=== PATIENT | female | born 1980 | race Caucasian/White ===

== ENCOUNTER 2021-07-07 22:14 | Inpatient (IN) ==
[2021-07-07] MEDS ORDERED: SODIUM CHLORIDE 0.9% 1,000 ML IV STA (23:03)
[2021-07-07 23:44] LABS: Basophils % 0.2 % (0.0-0.8); Eosinophils % 0.1 % (0.00-10.9); Hematocrit 39.8 VOL% (35.7-47.0); Hemoglobin 12.7 GM/DL (12.0-16.0); Immature Granulocytes % 0.6 %; Lymphocytes # 0.6 10*3/uL (1.4-4.0); Lymphocytes % 3.3 % (21.3-54.2); Mean Corpuscular HGB Conc 31.9 GM/DL (32-36); Mean Corpuscular Volume 79.6 FL (87-102); Monocytes % 12.7 % (1.7-12.7); Neutrophils % 83.1 % (38.7-73.9); Platelet Count 179 T/CUMM (130-400); Red Cell Distribution Width 13.6 % (9.3-17.3)
[2021-07-08 00:09] LABS: Alanine Aminotransferase 21 U/L (13-56); Albumin 2.1 G/DL (3.4-5.0); Alkaline Phosphatase 88 U/L (45-117); Aspartate Amino Transferase 18 U/L (0-37); Blood Urea Nitrogen 20 MG/DL (7-18); Calcium 8.9 MG/DL (8.5-10.1); Carbon Dioxide 24 MMOL/L (21-32); Estimated Glom Filtration Rate 73 ML/MIN; Glucose 372 MG/DL (74-106); Osmolality,Calculated 266.6 MOS/KG (273-304); Potassium 3.9 MMOL/L (3.5-5.1); Sodium 124 MMOL/L (136-145); Total Protein 8.5 G/DL (6.4-8.2)
[2021-07-08 00:20] LABS: Lactic Acid 3.4 MMOL/L (0.4-2.0)
[2021-07-08 00:49] LABS: Sedimentation Rate-Westergren 9 MM/HR (0-20)
[2021-07-08 01:00] LABS: Lymphocytes 5 % (20-55); Platelet Estimate Normal; Segmented Neutrophils 81 % (50-85); Total Cells Counted 100
[2021-07-08 01:01] LABS: Hypochromia Slight; Microcytosis 1+; Polychromasia Slight
[2021-07-08 02:00] LABS: Bacteria,Urine Occasional /HPF (Few); Bilirubin,Urine Negative (Negative); Blood, Urine Small mg/dL (Negative); Glucose,Urine (UA) >=500 mg/dL (Negative); Hyaline Casts,Urine 10 /LPF (0-3); Ketones,Urine 5 mg/dL (Negative); Mucus,Urine Few /LPF (Occasional); Nitrite,Urine Negative (Negative); Protein,Urine >=500 MG/DL; Squamous Epithelial Cell,Urine Occasional /HPF (0-10); Urine Appearance CLOUDY (Clear); Urine Color Amber (Yellow)
[2021-07-08 02:58] LABS: Barbiturates Screen,Urine Negative (Negative); Benzodiazepines Screen,Urine Negative (Negative); Cannabinoid Screen,Urine Negative (Negative); Opiate Screen,Urine Negative (Negative); Phencyclidine Screen,Urine Negative (Negative)
[2021-07-08] MEDS ORDERED: cefTRIAXone 1,000 MG in SODIUM CHLORIDE 0.9% 100 ML IV STA (04:28)
[2021-07-08] MEDS ORDERED: GLUCAGON 1 MG VIAL IM PRN ×2 (05:09)
[2021-07-08] MEDS ORDERED: DEXTROSE 50% 25 GM/50 ML VIAL IV PRN (05:09)
[2021-07-08] MEDS ORDERED: DEXTROSE 50% 25 GM/50 ML SYRINGE IV PRN (05:19)
[2021-07-08] MEDS ORDERED: AZITHROMYCIN INJ 500 MG in SODIUM CHLORIDE 0.9% 250 ML IV SCH (06:00)
[2021-07-08] MEDS: ENOXAPARIN 40 MG/0.4 ML SYRINGE SUBCUT SCH (06:28)
[2021-07-08 06:40] LABS: Basophils % 0.2 % (0.0-0.8); Hematocrit 37.3 VOL% (35.7-47.0); Hemoglobin 12.2 GM/DL (12.0-16.0); Immature Granulocytes % 0.7 %; Lymphocytes # 0.6 10*3/uL (1.4-4.0); Lymphocytes % 4.1 % (21.3-54.2); Mean Corpuscular HGB Conc 32.7 GM/DL (32-36); Mean Corpuscular Volume 79.4 FL (87-102); Mean Platelet Volume 12.5 FL (9.6-12.0); Monocytes % 11.9 % (1.7-12.7); Neutrophils % 83.1 % (38.7-73.9); Platelet Count 153 T/CUMM (130-400); Red Cell Distribution Width 13.5 % (9.3-17.3)
[2021-07-08 06:58] LABS: Albumin 1.8 G/DL (3.4-5.0); Bilirubin,Total 2.7 MG/DL (0.20-1.00); Calcium 8.9 MG/DL (8.5-10.1); Osmolality,Calculated 268.4 MOS/KG (273-304); Potassium 3.9 MMOL/L (3.5-5.1)
[2021-07-08 07:12] LABS: Band Neutrophils 36 % (0-10); Lymphocytes 4 % (20-55); Metamyelocytes 3 %; Platelet Estimate Normal; Segmented Neutrophils 47 % (50-85); Total Cells Counted 100
[2021-07-08 07:13] LABS: Anisocytosis Slight; Burr Cells Few
[2021-07-08] MEDS: SODIUM CHLORIDE 0.9% 1,000 ML IV SCH ×2 (07:24→16:57)
[2021-07-08] MEDS ORDERED: PANTOPRAZOLE 40 MG TABLET PO SCH (09:00)
[2021-07-08] MEDS ORDERED: SODIUM CHLORIDE 0.9% 1,000 ML IV ONE ×2 (09:20→13:48)
[2021-07-08] MEDS ORDERED: INFLUENZA VIRUS VACCINE 0.5 ML SYRINGE IM ONE (09:31)
[2021-07-08] MEDS: INSULIN REGULAR 100 UNIT/ML SUBCUT SCH ×4 (10:46→21:59)
[2021-07-08] MEDS ORDERED: DEXTROSE 10% 250 ML BAG IV PRN (11:05)
[2021-07-08] MEDS: VANCOMYCIN INJ 1,750 MG in SODIUM CHLORIDE 0.9% 500 ML IV SCH (11:56)
[2021-07-08] MEDS: FLUCONAZOLE INJ 200 MG/100 ML PREMIX IV SCH (14:39)
[2021-07-08] MEDS: ACETAMINOPHEN 325 MG TABLET PO PRN (16:57)
[2021-07-09] MEDS: ACETAMINOPHEN 325 MG TABLET PO PRN (01:29)
[2021-07-09] MEDS: VANCOMYCIN INJ 1,750 MG in SODIUM CHLORIDE 0.9% 500 ML IV SCH ×2 (01:30→12:38)
[2021-07-09] MEDS: SODIUM CHLORIDE 0.9% 1,000 ML IV SCH ×4 (01:31→20:46)
[2021-07-09] MEDS ORDERED: cefTRIAXone 1,000 MG in SODIUM CHLORIDE 0.9% 100 ML IV SCH ×2 (05:30→06:30)
[2021-07-09] MEDS: ENOXAPARIN 40 MG/0.4 ML SYRINGE SUBCUT SCH (06:26)
[2021-07-09] MEDS ORDERED: cefTRIAXone 2,000 MG in SODIUM CHLORIDE 0.9% 100 ML IV SCH (06:30)
[2021-07-09] MEDS ORDERED: fentaNYL 100 MCG/2 ML VIAL ONE (06:44)
[2021-07-09] MEDS ORDERED: LIDOCAINE 2% 5 ML VIAL ONE (06:45)
[2021-07-09] MEDS ORDERED: propofoL 200 MG/20 ML VIAL IV ONE (06:45)
[2021-07-09 07:20] LABS: Basophils % 0.1 % (0.0-0.8); Hemoglobin 10.6 GM/DL (12.0-16.0); Immature Granulocytes % 1.3 %; Immature Granulocytes Absolute 0.18 #; Lymphocytes # 0.5 10*3/uL (1.4-4.0); Lymphocytes % 3.9 % (21.3-54.2); Mean Corpuscular HGB Conc 32.1 GM/DL (32-36); Mean Corpuscular Volume 79.9 FL (87-102); Mean Platelet Volume 12.5 FL (9.6-12.0); Monocytes % 14.8 % (1.7-12.7); Neutrophils % 79.9 % (38.7-73.9); Platelet Count 172 T/CUMM (130-400); Red Blood Count 4.13 MC/CUMM (3.8-5.5); Red Cell Distribution Width 13.5 % (9.3-17.3); White Blood Count 13.5 T/CUMM (4-12)
[2021-07-09] MEDS: INSULIN REGULAR 100 UNIT/ML SUBCUT SCH ×4 (07:36→20:50)
[2021-07-09] MEDS ORDERED: SUCCINYLCHOLINE 200 MG/10 ML VIAL ONE (07:42)
[2021-07-09] MEDS ORDERED: ONDANSETRON 4 MG/2 ML VIAL ONE (07:42)
[2021-07-09] MEDS ORDERED: DEXAMETHASONE 4 MG/1 ML VIAL ONE (07:45)
[2021-07-09] MEDS ORDERED: SODIUM CHLORIDE 0.9% 1,000 ML IV ONE (07:49)
[2021-07-09 07:53] LABS: Calcium 8.4 MG/DL (8.5-10.1); Osmolality,Calculated 264.9 MOS/KG (273-304); Potassium 3.2 MMOL/L (3.5-5.1)
[2021-07-09] MEDS ORDERED: SEVOFLURANE 1 UNIT/15 MINUTE INH ONE (07:54)
[2021-07-09 08:03] LABS: Band Neutrophils 41 % (0-10); Eosinophils 1 % (0-10); Lymphocytes 3 % (20-55); Platelet Estimate Normal; Segmented Neutrophils 41 % (50-85); Total Cells Counted 100
[2021-07-09 08:04] LABS: Anisocytosis Slight
[2021-07-09] MEDS ORDERED: ONDANSETRON 4 MG/2 ML VIAL IV PRN (08:22)
[2021-07-09] MEDS: HYDROmorphone 2 MG/1 ML VIAL IV PRN ×2 (08:31→08:39)
[2021-07-09] MEDS: FLUCONAZOLE INJ 200 MG/100 ML PREMIX IV SCH (09:21)
[2021-07-09] MEDS ORDERED: POTASSIUM CHLORIDE 20 MEQ TABLET PO PRN (12:02)
[2021-07-09] MEDS ORDERED: MAGNESIUM SULF RIDER 4 GM/100 ML PREMIX IV PRN (12:02)
[2021-07-09] MEDS ORDERED: MAGNESIUM SULF RIDER 2 GM/50 ML PREMIX IV PRN (12:02)
[2021-07-09] MEDS ORDERED: HYDROmorphone 2 MG/1 ML VIAL IV PRN (12:05)
[2021-07-09 12:29] LABS: Basophils # 0.1 10*3/uL (0.0-0.2); Basophils % 0.3 % (0.0-0.8); Hematocrit 31.8 VOL% (35.7-47.0); Hemoglobin 10.1 GM/DL (12.0-16.0); Immature Granulocytes % 1.4 %; Lymphocytes # 0.4 10*3/uL (1.4-4.0); Lymphocytes % 2.6 % (21.3-54.2); Mean Corpuscular HGB Conc 31.8 GM/DL (32-36); Mean Corpuscular Volume 80.3 FL (87-102); Monocytes % 12.4 % (1.7-12.7); Neutrophils % 83.3 % (38.7-73.9); Platelet Count 175 T/CUMM (130-400); Red Blood Count 3.96 MC/CUMM (3.8-5.5); Red Cell Distribution Width 13.6 % (9.3-17.3); White Blood Count 14.4 T/CUMM (4-12)
[2021-07-09 12:49] LABS: Band Neutrophils 23 % (0-10); Lymphocytes 3 % (20-55); Metamyelocytes 3 %; Platelet Estimate Normal; Segmented Neutrophils 59 % (50-85); Total Cells Counted 100
[2021-07-09 12:50] LABS: Anisocytosis Slight
[2021-07-09] MEDS: INSULIN GLARGINE 100 UNIT/ML SUBCUT SCH (13:04)
[2021-07-09] MEDS: CLINDAMYCIN INJ 600 MG/50 ML PREMIX IV SCH ×2 (13:17→20:39)
[2021-07-09] MEDS: PIPERACILLIN/TAZOBACTAM 3,375 MG in SODIUM CHLORIDE 0.9% 100 ML IV SCH ×2 (16:19→23:14)
[2021-07-10] MEDS: VANCOMYCIN INJ 1,750 MG in SODIUM CHLORIDE 0.9% 500 ML IV SCH ×2 (00:45→15:41)
[2021-07-10 05:40] LABS: Basophils % 0.3 % (0.0-0.8); Hematocrit 30.8 VOL% (35.7-47.0); Hemoglobin 9.8 GM/DL (12.0-16.0); Immature Granulocytes % 2.5 %; Immature Granulocytes Absolute 0.34 #; Lymphocytes # 0.6 10*3/uL (1.4-4.0); Lymphocytes % 4.5 % (21.3-54.2); Mean Corpuscular HGB Conc 31.8 GM/DL (32-36); Mean Corpuscular Volume 80.8 FL (87-102); Mean Platelet Volume 12.3 FL (9.6-12.0); Monocytes % 14.6 % (1.7-12.7); Neutrophils % 78.1 % (38.7-73.9); Platelet Count 200 T/CUMM (130-400); Red Blood Count 3.81 MC/CUMM (3.8-5.5); Red Cell Distribution Width 13.6 % (9.3-17.3); White Blood Count 13.6 T/CUMM (4-12)
[2021-07-10] MEDS: CLINDAMYCIN INJ 600 MG/50 ML PREMIX IV SCH ×3 (05:45→22:39)
[2021-07-10] MEDS: ENOXAPARIN 40 MG/0.4 ML SYRINGE SUBCUT SCH (05:46)
[2021-07-10] MEDS: PIPERACILLIN/TAZOBACTAM 3,375 MG in SODIUM CHLORIDE 0.9% 100 ML IV SCH ×2 (05:46→18:07)
[2021-07-10] MEDS: SODIUM CHLORIDE 0.9% 1,000 ML IV SCH ×3 (05:47→22:45)
[2021-07-10 05:57] LABS: Albumin 1.2 G/DL (3.4-5.0); Bilirubin,Total 1.6 MG/DL (0.20-1.00); Calcium 7.8 MG/DL (8.5-10.1); Osmolality,Calculated 271.7 MOS/KG (273-304); Potassium 3.4 MMOL/L (3.5-5.1); Total Protein 6.4 G/DL (6.4-8.2)
[2021-07-10 06:12] LABS: Hypochromia 1+; Lymphocytes 2 % (20-55); Microcytosis 1+; Platelet Estimate Adequate; Segmented Neutrophils 85 % (50-85); Total Cells Counted 100
[2021-07-10] MEDS ORDERED: FAMOTIDINE 20 MG/2 ML VIAL IV ONE (08:31)
[2021-07-10] MEDS: INSULIN GLARGINE 100 UNIT/ML SUBCUT SCH (10:12)
[2021-07-10] MEDS: INSULIN REGULAR 100 UNIT/ML SUBCUT SCH ×4 (10:12→22:55)
[2021-07-10] MEDS: FLUCONAZOLE INJ 400 MG/200 ML PREMIX IV SCH (10:13)
[2021-07-10] MEDS ORDERED: fentaNYL 100 MCG/2 ML VIAL ONE ×2 (12:09→12:49)
[2021-07-10] MEDS ORDERED: propofoL 200 MG/20 ML VIAL IV ONE (12:09)
[2021-07-10] MEDS ORDERED: ONDANSETRON 4 MG/2 ML VIAL ONE (12:09)
[2021-07-10] MEDS ORDERED: SUCCINYLCHOLINE 200 MG/10 ML VIAL ONE (12:09)
[2021-07-10] MEDS ORDERED: DEXAMETHASONE 4 MG/1 ML VIAL ONE ×2 (12:09→12:43)
[2021-07-10] MEDS ORDERED: LIDOCAINE 2% 5 ML VIAL ONE (12:09)
[2021-07-10] MEDS ORDERED: ACETAMINOPHEN INJ 1,000 MG/100 ML VIAL IV ONE (12:14)
[2021-07-10] MEDS ORDERED: KETOROLAC 30 MG/1 ML VIAL ONE (12:14)
[2021-07-10] MEDS ORDERED: LACTATED RINGERS 1,000 ML IV SCH (12:30)
[2021-07-10] MEDS ORDERED: SEVOFLURANE 1 UNIT/15 MINUTE INH ONE ×2 (12:43→13:35)
[2021-07-11] MEDS: PIPERACILLIN/TAZOBACTAM 3,375 MG in SODIUM CHLORIDE 0.9% 100 ML IV SCH ×3 (00:51→18:22)
[2021-07-11] MEDS: VANCOMYCIN INJ 1,750 MG in SODIUM CHLORIDE 0.9% 500 ML IV SCH ×2 (03:55→17:44)
[2021-07-11 05:54] LABS: Basophils % 0.2 % (0.0-0.8); Hematocrit 29.5 VOL% (35.7-47.0); Hemoglobin 9.2 GM/DL (12.0-16.0); Immature Granulocytes % 5.2 %; Immature Granulocytes Absolute 0.94 #; Lymphocytes # 0.6 10*3/uL (1.4-4.0); Lymphocytes % 3.4 % (21.3-54.2); Mean Corpuscular HGB Conc 31.2 GM/DL (32-36); Mean Corpuscular Volume 82.6 FL (87-102); Mean Platelet Volume 11.7 FL (9.6-12.0); Neutrophils % 82.2 % (38.7-73.9); Platelet Count 228 T/CUMM (130-400); Red Blood Count 3.57 MC/CUMM (3.8-5.5); Red Cell Distribution Width 13.7 % (9.3-17.3); White Blood Count 18.1 T/CUMM (4-12)
[2021-07-11 06:18] LABS: Band Neutrophils 3 % (0-10); Hypochromia 1+; Lymphocytes 1 % (20-55); Microcytosis 1+; Platelet Estimate Adequate; Segmented Neutrophils 88 % (50-85); Total Cells Counted 100
[2021-07-11 06:35] LABS: Albumin 1.1 G/DL (3.4-5.0); Bilirubin,Total 1.3 MG/DL (0.20-1.00); Calcium 8.2 MG/DL (8.5-10.1); Osmolality,Calculated 280.7 MOS/KG (273-304); Potassium 3.8 MMOL/L (3.5-5.1); Total Protein 6.4 G/DL (6.4-8.2)
[2021-07-11] MEDS: CLINDAMYCIN INJ 600 MG/50 ML PREMIX IV SCH ×3 (07:11→21:58)
[2021-07-11] MEDS ORDERED: ROCURONIUM 50 MG/5 ML VIAL IV ONE (07:22)
[2021-07-11] MEDS ORDERED: fentaNYL 100 MCG/2 ML VIAL ONE ×2 (07:22→08:31)
[2021-07-11] MEDS ORDERED: SUCCINYLCHOLINE 200 MG/10 ML VIAL ONE (07:22)
[2021-07-11] MEDS ORDERED: ONDANSETRON 4 MG/2 ML VIAL ONE (07:22)
[2021-07-11] MEDS ORDERED: LIDOCAINE 2% 5 ML VIAL ONE (07:22)
[2021-07-11] MEDS ORDERED: SEVOFLURANE 1 UNIT/15 MINUTE INH ONE ×3 (07:22→09:06)
[2021-07-11] MEDS ORDERED: MIDAZOLAM 2 MG/2 ML VIAL ONE (07:22)
[2021-07-11] MEDS ORDERED: propofoL 200 MG/20 ML VIAL IV ONE (07:22)
[2021-07-11] MEDS ORDERED: LACTATED RINGERS 1,000 ML IV SCH (08:00)
[2021-07-11] MEDS ORDERED: INSULIN GLARGINE 100 UNIT/ML SUBCUT SCH (09:00)
[2021-07-11] MEDS ORDERED: LACTATED RINGERS 1,000 ML IV ONE (09:05)
[2021-07-11] MEDS ORDERED: PROMETHAZINE INJ 25 MG in SODIUM CHLORIDE 0.9% 50 ML IV PRN (09:18)
[2021-07-11] MEDS ORDERED: HYDROmorphone 2 MG/1 ML VIAL IV PRN (09:18)
[2021-07-11] MEDS ORDERED: ONDANSETRON 4 MG/2 ML VIAL IV PRN (09:18)
[2021-07-11] MEDS ORDERED: MEPERIDINE 25 MG/1 ML VIAL IV PRN (09:18)
[2021-07-11] MEDS ORDERED: diphenhydrAMINE 50 MG/1 ML VIAL IV PRN (09:18)
[2021-07-11] MEDS: FLUCONAZOLE INJ 400 MG/200 ML PREMIX IV SCH (10:51)
[2021-07-11] MEDS: INSULIN REGULAR 100 UNIT/ML SUBCUT SCH ×4 (10:52→21:58)
[2021-07-11] MEDS ORDERED: INSULIN GLARGINE 100 UNIT/ML SUBCUT ONE (15:00)
[2021-07-11] MEDS: SODIUM CHLORIDE 0.9% 1,000 ML IV SCH ×2 (16:11→19:53)
[2021-07-12] MEDS: SODIUM CHLORIDE 0.9% 1,000 ML IV SCH ×4 (01:31→21:53)
[2021-07-12] MEDS: PIPERACILLIN/TAZOBACTAM 3,375 MG in SODIUM CHLORIDE 0.9% 100 ML IV SCH ×3 (01:32→16:28)
[2021-07-12 05:18] LABS: Basophils # 0.1 10*3/uL (0.0-0.2); Basophils % 0.4 % (0.0-0.8); Eosinophils % 0.2 % (0.00-10.9); Hematocrit 30.2 VOL% (35.7-47.0); Hemoglobin 9.3 GM/DL (12.0-16.0); Immature Granulocytes % 8.6 %; Immature Granulocytes Absolute 1.47 #; Lymphocytes # 1.1 10*3/uL (1.4-4.0); Lymphocytes % 6.3 % (21.3-54.2); Mean Corpuscular HGB Conc 30.8 GM/DL (32-36); Mean Corpuscular Volume 84.1 FL (87-102); Mean Platelet Volume 11.2 FL (9.6-12.0); Neutrophils % 76.5 % (38.7-73.9); Platelet Count 298 T/CUMM (130-400); Red Blood Count 3.59 MC/CUMM (3.8-5.5); Red Cell Distribution Width 13.9 % (9.3-17.3); White Blood Count 17.1 T/CUMM (4-12)
[2021-07-12 05:42] LABS: Band Neutrophils 2 % (0-10); Eosinophils 1 % (0-10); Lymphocytes 6 % (20-55); Platelet Estimate Adequate; Segmented Neutrophils 86 % (50-85); Total Cells Counted 100
[2021-07-12 05:43] LABS: Hypochromia Slight; Microcytosis Slight
[2021-07-12] MEDS: CLINDAMYCIN INJ 600 MG/50 ML PREMIX IV SCH ×3 (05:44→21:52)
[2021-07-12 05:47] LABS: Calcium 8.3 MG/DL (8.5-10.1); Osmolality,Calculated 284.1 MOS/KG (273-304); Potassium 3.4 MMOL/L (3.5-5.1)
[2021-07-12] MEDS ORDERED: POTASSIUM CHLORIDE 20 MEQ TABLET PO ONE (07:40)
[2021-07-12] MEDS ORDERED: MIDAZOLAM 2 MG/2 ML VIAL ONE (08:56)
[2021-07-12] MEDS ORDERED: ONDANSETRON 4 MG/2 ML VIAL ONE (08:56)
[2021-07-12] MEDS ORDERED: ROCURONIUM 50 MG/5 ML VIAL IV ONE (08:56)
[2021-07-12] MEDS ORDERED: propofoL 200 MG/20 ML VIAL IV ONE (08:56)
[2021-07-12] MEDS ORDERED: LIDOCAINE 2% 5 ML VIAL ONE (08:56)
[2021-07-12] MEDS ORDERED: fentaNYL 100 MCG/2 ML VIAL ONE (08:56)
[2021-07-12] MEDS ORDERED: LACTATED RINGERS 1,000 ML IV SCH (09:30)
[2021-07-12] MEDS ORDERED: SUCCINYLCHOLINE 200 MG/10 ML VIAL ONE (09:39)
[2021-07-12] MEDS ORDERED: SEVOFLURANE 1 UNIT/15 MINUTE INH ONE (10:16)
[2021-07-12] MEDS ORDERED: ONDANSETRON 4 MG/2 ML VIAL IV PRN (10:55)
[2021-07-12] MEDS ORDERED: HYDROmorphone 2 MG/1 ML VIAL IV PRN (10:55)
[2021-07-12] MEDS: INSULIN REGULAR 100 UNIT/ML SUBCUT SCH ×4 (12:47→21:53)
[2021-07-12] MEDS: ENOXAPARIN 40 MG/0.4 ML SYRINGE SUBCUT SCH ×2 (13:05→13:32)
[2021-07-12] MEDS: INSULIN GLARGINE 100 UNIT/ML SUBCUT SCH (13:06)
[2021-07-12] MEDS: FLUCONAZOLE INJ 400 MG/200 ML PREMIX IV SCH (13:30)
[2021-07-12] MEDS: FLUCONAZOLE 200 MG TABLET PO SCH (14:44)
[2021-07-12] MEDS ORDERED: GLUCAGON 1 MG VIAL IM PRN (15:55)
[2021-07-12] MEDS ORDERED: DEXTROSE 50% 25 GM/50 ML VIAL IV PRN (15:55)
[2021-07-13] MEDS: PIPERACILLIN/TAZOBACTAM 3,375 MG in SODIUM CHLORIDE 0.9% 100 ML IV SCH ×3 (01:54→16:32)
[2021-07-13 06:07] LABS: Basophils # 0.1 10*3/uL (0.0-0.2); Basophils % 0.4 % (0.0-0.8); Eosinophils # 0.1 10*3/uL (0.0-0.87); Eosinophils % 0.4 % (0.00-10.9); Hematocrit 30.8 VOL% (35.7-47.0); Hemoglobin 9.7 GM/DL (12.0-16.0); Immature Granulocytes % 8.6 %; Immature Granulocytes Absolute 1.94 #; Lymphocytes # 1.2 10*3/uL (1.4-4.0); Lymphocytes % 5.1 % (21.3-54.2); Mean Corpuscular HGB Conc 31.5 GM/DL (32-36); Mean Corpuscular Volume 82.4 FL (87-102); Mean Platelet Volume 10.5 FL (9.6-12.0); Monocytes % 5.7 % (1.7-12.7); Neutrophils % 79.8 % (38.7-73.9); Platelet Count 336 T/CUMM (130-400); Red Blood Count 3.74 MC/CUMM (3.8-5.5); Red Cell Distribution Width 13.9 % (9.3-17.3); White Blood Count 22.5 T/CUMM (4-12)
[2021-07-13] MEDS: CLINDAMYCIN INJ 600 MG/50 ML PREMIX IV SCH ×3 (06:22→22:09)
[2021-07-13 06:36] LABS: Osmolality,Calculated 276.8 MOS/KG (273-304); Potassium 3.3 MMOL/L (3.5-5.1)
[2021-07-13 06:40] LABS: Band Neutrophils 3 % (0-10); Hypochromia 1+; Lymphocytes 5 % (20-55); Microcytosis 1+; Platelet Estimate Adequate; Segmented Neutrophils 88 % (50-85); Total Cells Counted 100
[2021-07-13] MEDS: FLUCONAZOLE 200 MG TABLET PO SCH (09:12)
[2021-07-13] MEDS: INSULIN REGULAR 100 UNIT/ML SUBCUT SCH ×4 (09:13→22:09)
[2021-07-13] MEDS: INSULIN GLARGINE 100 UNIT/ML SUBCUT SCH (09:13)
[2021-07-13] MEDS ORDERED: POTASSIUM CHLORIDE 20 MEQ TABLET PO PRN (11:28)
[2021-07-13] MEDS: SODIUM CHLORIDE 0.9% 1,000 ML IV SCH ×4 (12:03→22:09)
[2021-07-14] MEDS: PIPERACILLIN/TAZOBACTAM 3,375 MG in SODIUM CHLORIDE 0.9% 100 ML IV SCH ×3 (00:50→21:23)
[2021-07-14] MEDS: SODIUM CHLORIDE 0.9% 1,000 ML IV SCH ×2 (05:30→15:07)
[2021-07-14] MEDS: CLINDAMYCIN INJ 600 MG/50 ML PREMIX IV SCH ×2 (05:34→12:10)
[2021-07-14 05:53] LABS: Basophils # 0.1 10*3/uL (0.0-0.2); Basophils % 0.3 % (0.0-0.8); Eosinophils # 0.2 10*3/uL (0.0-0.87); Eosinophils % 0.8 % (0.00-10.9); Hemoglobin 8.5 GM/DL (12.0-16.0); Immature Granulocytes % 9.3 %; Immature Granulocytes Absolute 1.81 #; Lymphocytes # 1.3 10*3/uL (1.4-4.0); Lymphocytes % 6.5 % (21.3-54.2); Mean Corpuscular HGB Conc 30.4 GM/DL (32-36); Mean Corpuscular Volume 84.1 FL (87-102); Mean Platelet Volume 10.4 FL (9.6-12.0); Monocytes % 5.7 % (1.7-12.7); NRBC # 0.03 10*3/uL; Neutrophils % 77.4 % (38.7-73.9); Platelet Count 320 T/CUMM (130-400); Red Blood Count 3.33 MC/CUMM (3.8-5.5); Red Cell Distribution Width 14.1 % (9.3-17.3); White Blood Count 19.5 T/CUMM (4-12)
[2021-07-14 06:12] LABS: % Iron Saturation 16.5 % (18-50); Osmolality,Calculated 273.7 MOS/KG (273-304); Potassium 3.3 MMOL/L (3.5-5.1)
[2021-07-14 06:31] LABS: Band Neutrophils 6 % (0-10); Eosinophils 1 % (0-10); Hypochromia 1+; Lymphocytes 8 % (20-55); Microcytosis 1+; Myelocytes 3 %; Platelet Estimate Adequate; Segmented Neutrophils 75 % (50-85); Total Cells Counted 100
[2021-07-14] MEDS ORDERED: propofoL 200 MG/20 ML VIAL IV ONE ×3 (06:43→09:06)
[2021-07-14] MEDS ORDERED: ROCURONIUM 50 MG/5 ML VIAL IV ONE ×2 (06:43→08:06)
[2021-07-14] MEDS ORDERED: fentaNYL 100 MCG/2 ML VIAL ONE ×3 (06:44→09:16)
[2021-07-14] MEDS ORDERED: SUCCINYLCHOLINE 200 MG/10 ML VIAL ONE ×2 (06:44→08:06)
[2021-07-14] MEDS ORDERED: LIDOCAINE 2% 5 ML VIAL ONE ×2 (06:44→08:06)
[2021-07-14] MEDS ORDERED: ONDANSETRON 4 MG/2 ML VIAL ONE ×2 (06:44→09:06)
[2021-07-14] MEDS: INSULIN REGULAR 100 UNIT/ML SUBCUT SCH ×4 (07:30→21:22)
[2021-07-14] MEDS ORDERED: DESFLURANE 1 UNIT/15 MINUTE INH ONE (08:08)
[2021-07-14] MEDS ORDERED: LACTATED RINGERS 1,000 ML IV SCH (09:00)
[2021-07-14] MEDS: INSULIN GLARGINE 100 UNIT/ML SUBCUT SCH (11:51)
[2021-07-14] MEDS: FLUCONAZOLE 200 MG TABLET PO SCH (12:29)
[2021-07-14] MEDS: FERROUS SULFATE 325 MG TABLET PO SCH (21:22)
[2021-07-14] MEDS: DOCUSATE SODIUM 100 MG CAPSULE PO SCH (21:22)
[2021-07-15] MEDS: CLINDAMYCIN INJ 600 MG/50 ML PREMIX IV SCH ×3 (01:54→18:10)
[2021-07-15] MEDS: ENOXAPARIN 40 MG/0.4 ML SYRINGE SUBCUT SCH (04:34)
[2021-07-15] MEDS: PIPERACILLIN/TAZOBACTAM 3,375 MG in SODIUM CHLORIDE 0.9% 100 ML IV SCH ×3 (04:35→21:57)
[2021-07-15 05:39] LABS: Basophils # 0.1 10*3/uL (0.0-0.2); Basophils % 0.3 % (0.0-0.8); Eosinophils # 0.2 10*3/uL (0.0-0.87); Eosinophils % 0.8 % (0.00-10.9); Hematocrit 27.9 VOL% (35.7-47.0); Hemoglobin 8.6 GM/DL (12.0-16.0); Immature Granulocytes % 8.9 %; Immature Granulocytes Absolute 1.57 #; Lymphocytes # 1.1 10*3/uL (1.4-4.0); Lymphocytes % 6.1 % (21.3-54.2); Mean Corpuscular HGB Conc 30.8 GM/DL (32-36); Mean Platelet Volume 9.8 FL (9.6-12.0); Monocytes % 6.9 % (1.7-12.7); NRBC # 0.02 10*3/uL; Platelet Count 353 T/CUMM (130-400); Red Blood Count 3.32 MC/CUMM (3.8-5.5); Red Cell Distribution Width 14.2 % (9.3-17.3); White Blood Count 17.7 T/CUMM (4-12)
[2021-07-15 05:55] LABS: Calcium 7.5 MG/DL (8.5-10.1); Osmolality,Calculated 278.8 MOS/KG (273-304); Potassium 3.4 MMOL/L (3.5-5.1)
[2021-07-15 06:13] LABS: Band Neutrophils 7 % (0-10); Hypochromia Slight; Lymphocytes 3 % (20-55); Microcytosis Slight; Platelet Estimate Normal; Segmented Neutrophils 87 % (50-85); Total Cells Counted 100
[2021-07-15] MEDS: INSULIN GLARGINE 100 UNIT/ML SUBCUT SCH (09:11)
[2021-07-15] MEDS: FERROUS SULFATE 325 MG TABLET PO SCH ×2 (09:11→21:58)
[2021-07-15] MEDS: DOCUSATE SODIUM 100 MG CAPSULE PO SCH ×2 (09:12→21:58)
[2021-07-15] MEDS: INSULIN REGULAR 100 UNIT/ML SUBCUT SCH ×4 (10:26→21:57)
[2021-07-15] MEDS: SODIUM CHLORIDE 0.9% 1,000 ML IV SCH ×2 (12:15→12:55)
[2021-07-16] MEDS: SODIUM CHLORIDE 0.9% 1,000 ML IV SCH ×2 (00:10→22:51)
[2021-07-16] MEDS: CLINDAMYCIN INJ 600 MG/50 ML PREMIX IV SCH ×3 (00:58→16:50)
[2021-07-16] MEDS: PIPERACILLIN/TAZOBACTAM 3,375 MG in SODIUM CHLORIDE 0.9% 100 ML IV SCH ×3 (04:59→22:51)
[2021-07-16] MEDS: ENOXAPARIN 40 MG/0.4 ML SYRINGE SUBCUT SCH (05:33)
[2021-07-16] MEDS: DOCUSATE SODIUM 100 MG CAPSULE PO SCH ×2 (09:32→22:53)
[2021-07-16] MEDS: INSULIN REGULAR 100 UNIT/ML SUBCUT SCH ×4 (09:32→22:53)
[2021-07-16] MEDS: INSULIN GLARGINE 100 UNIT/ML SUBCUT SCH (09:32)
[2021-07-16] MEDS: FERROUS SULFATE 325 MG TABLET PO SCH ×2 (09:32→22:52)
[2021-07-16 09:36] LABS: Basophils % 0.2 % (0.0-0.8); Eosinophils # 0.2 10*3/uL (0.0-0.87); Eosinophils % 1.3 % (0.00-10.9); Hemoglobin 8.6 GM/DL (12.0-16.0); Immature Granulocytes % 7.3 %; Immature Granulocytes Absolute 0.81 #; Lymphocytes # 0.9 10*3/uL (1.4-4.0); Lymphocytes % 7.9 % (21.3-54.2); Mean Corpuscular HGB Conc 30.7 GM/DL (32-36); Mean Corpuscular Volume 84.1 FL (87-102); Mean Platelet Volume 9.7 FL (9.6-12.0); Monocytes % 7.1 % (1.7-12.7); NRBC # 0.02 10*3/uL; Neutrophils % 76.2 % (38.7-73.9); Platelet Count 337 T/CUMM (130-400); Red Blood Count 3.33 MC/CUMM (3.8-5.5); Red Cell Distribution Width 14.1 % (9.3-17.3); White Blood Count 11.1 T/CUMM (4-12)
[2021-07-16 09:58] LABS: Band Neutrophils 8 % (0-10); Hypochromia 1+; Lymphocytes 7 % (20-55); Myelocytes 1 %; Segmented Neutrophils 76 % (50-85); Total Cells Counted 100
[2021-07-16 09:59] LABS: Microcytosis 1+
[2021-07-16 10:01] LABS: Platelet Estimate Normal
[2021-07-16 10:15] LABS: Osmolality,Calculated 278.7 MOS/KG (273-304); Potassium 3.5 MMOL/L (3.5-5.1)
[2021-07-16] MEDS ORDERED: INSULIN GLARGINE 100 UNIT/ML SUBCUT ONE (10:46)
[2021-07-16] MEDS: PANTOPRAZOLE 40 MG TABLET PO SCH (16:50)
[2021-07-17] MEDS: PIPERACILLIN/TAZOBACTAM 3,375 MG in SODIUM CHLORIDE 0.9% 100 ML IV SCH ×3 (05:01→21:07)
[2021-07-17 05:37] LABS: Basophils % 0.1 % (0.0-0.8); Eosinophils # 0.1 10*3/uL (0.0-0.87); Eosinophils % 1.2 % (0.00-10.9); Hematocrit 27.5 VOL% (35.7-47.0); Hemoglobin 8.2 GM/DL (12.0-16.0); Immature Granulocytes % 4.1 %; Immature Granulocytes Absolute 0.45 #; Lymphocytes # 1.2 10*3/uL (1.4-4.0); Lymphocytes % 11.2 % (21.3-54.2); Mean Corpuscular HGB Conc 29.8 GM/DL (32-36); Mean Corpuscular Volume 85.1 FL (87-102); Mean Platelet Volume 9.5 FL (9.6-12.0); Monocytes % 6.4 % (1.7-12.7); Platelet Count 334 T/CUMM (130-400); Red Blood Count 3.23 MC/CUMM (3.8-5.5); Red Cell Distribution Width 14.1 % (9.3-17.3)
[2021-07-17 06:00] LABS: Osmolality,Calculated 276.3 MOS/KG (273-304); Potassium 3.4 MMOL/L (3.5-5.1)
[2021-07-17] MEDS: INSULIN REGULAR 100 UNIT/ML SUBCUT SCH ×4 (08:01→22:25)
[2021-07-17] MEDS ORDERED: POTASSIUM CHLORIDE 20 MEQ TABLET PO ONE (08:06)
[2021-07-17] MEDS: ENOXAPARIN 40 MG/0.4 ML SYRINGE SUBCUT SCH (08:53)
[2021-07-17] MEDS: INSULIN GLARGINE 100 UNIT/ML SUBCUT SCH (08:54)
[2021-07-17] MEDS ORDERED: propofoL 200 MG/20 ML VIAL IV ONE (09:46)
[2021-07-17] MEDS ORDERED: ROCURONIUM 50 MG/5 ML VIAL IV ONE (09:46)
[2021-07-17] MEDS ORDERED: LIDOCAINE 2% 5 ML VIAL ONE (09:46)
[2021-07-17] MEDS ORDERED: ONDANSETRON 4 MG/2 ML VIAL ONE (09:46)
[2021-07-17] MEDS ORDERED: SUCCINYLCHOLINE 200 MG/10 ML VIAL ONE (09:46)
[2021-07-17] MEDS ORDERED: DEXMEDETOMIDINE 200 MCG/2 ML VIAL ONE (09:46)
[2021-07-17] MEDS ORDERED: fentaNYL 100 MCG/2 ML VIAL ONE (09:53)
[2021-07-17] MEDS ORDERED: LACTATED RINGERS 1,000 ML IV SCH (10:00)
[2021-07-17] MEDS ORDERED: PHENYLEPHRINE 1 MG/10 ML SYRINGE IV ONE (10:34)
[2021-07-17] MEDS ORDERED: DESFLURANE 1 UNIT/15 MINUTE INH ONE (10:35)
[2021-07-17] MEDS ORDERED: HYDROmorphone 2 MG/1 ML VIAL IV PRN (10:45)
[2021-07-17] MEDS ORDERED: ONDANSETRON 4 MG/2 ML VIAL IV PRN (10:45)
[2021-07-17] MEDS ORDERED: diphenhydrAMINE 50 MG/1 ML VIAL IV PRN (10:45)
[2021-07-17] MEDS ORDERED: PROMETHAZINE INJ 25 MG in SODIUM CHLORIDE 0.9% 50 ML IV PRN (10:45)
[2021-07-17] MEDS: MEPERIDINE 25 MG/1 ML VIAL IV PRN ×2 (10:50→11:05)
[2021-07-17] MEDS: SODIUM CHLORIDE 0.9% 1,000 ML IV SCH (11:01)
[2021-07-17] MEDS ORDERED: PROMETHAZINE 25 MG/1 ML VIAL ONE (11:03)
[2021-07-17] MEDS: FERROUS SULFATE 325 MG TABLET PO SCH ×2 (12:39→21:06)
[2021-07-17] MEDS: PANTOPRAZOLE 40 MG TABLET PO SCH (12:40)
[2021-07-17] MEDS: DOCUSATE SODIUM 100 MG CAPSULE PO SCH ×2 (12:40→21:06)
[2021-07-17] MEDS: ONDANSETRON 4 MG/2 ML VIAL IV PRN (12:58)
[2021-07-17] MEDS: ACETAMINOPHEN 325 MG TABLET PO PRN (12:59)
[2021-07-17] MEDS ORDERED: GLUCAGON 1 MG VIAL IM PRN (16:56)
[2021-07-17] MEDS ORDERED: DEXTROSE 50% 25 GM/50 ML VIAL IV PRN (16:56)
[2021-07-18] MEDS: SODIUM CHLORIDE 0.9% 1,000 ML IV SCH ×2 (00:07→10:36)
[2021-07-18] MEDS: PIPERACILLIN/TAZOBACTAM 3,375 MG in SODIUM CHLORIDE 0.9% 100 ML IV SCH (05:19)
[2021-07-18 09:00] LABS: Basophils % 0.2 % (0.0-0.8); Eosinophils # 0.1 10*3/uL (0.0-0.87); Eosinophils % 1.1 % (0.00-10.9); Hematocrit 28.2 VOL% (35.7-47.0); Hemoglobin 8.5 GM/DL (12.0-16.0); Immature Granulocytes % 1.1 %; Immature Granulocytes Absolute 0.14 #; Lymphocytes # 1.1 10*3/uL (1.4-4.0); Lymphocytes % 8.7 % (21.3-54.2); Mean Corpuscular HGB Conc 30.1 GM/DL (32-36); Mean Corpuscular Volume 86.2 FL (87-102); Mean Platelet Volume 9.4 FL (9.6-12.0); Monocytes % 5.7 % (1.7-12.7); Neutrophils % 83.2 % (38.7-73.9); Platelet Count 346 T/CUMM (130-400); Red Blood Count 3.27 MC/CUMM (3.8-5.5); Red Cell Distribution Width 14.5 % (9.3-17.3); White Blood Count 12.4 T/CUMM (4-12)
[2021-07-18] MEDS: INSULIN REGULAR 100 UNIT/ML SUBCUT SCH ×4 (09:24→21:32)
[2021-07-18 09:33] LABS: Calcium 8.1 MG/DL (8.5-10.1); Osmolality,Calculated 277.8 MOS/KG (273-304); Potassium 4.1 MMOL/L (3.5-5.1)
[2021-07-18] MEDS: PANTOPRAZOLE 40 MG TABLET PO SCH (09:43)
[2021-07-18] MEDS: DULoxetine 20 MG CAPSULE PO SCH ×2 (09:43→21:31)
[2021-07-18] MEDS: FERROUS SULFATE 325 MG TABLET PO SCH ×2 (09:43→21:31)
[2021-07-18] MEDS: ROSUVASTATIN 10 MG TABLET PO SCH (09:43)
[2021-07-18] MEDS: DOCUSATE SODIUM 100 MG CAPSULE PO SCH ×2 (09:43→21:31)
[2021-07-18] MEDS: ENOXAPARIN 40 MG/0.4 ML SYRINGE SUBCUT SCH (09:43)
[2021-07-18] MEDS: INSULIN GLARGINE 100 UNIT/ML SUBCUT SCH (09:43)
[2021-07-18] MEDS: cefTRIAXone 2,000 MG in SODIUM CHLORIDE 0.9% 100 ML IV SCH (11:54)
[2021-07-18] MEDS: GABAPENTIN 300 MG CAPSULE PO SCH (21:31)
[2021-07-18] MEDS: ACETAMINOPHEN 325 MG TABLET PO PRN (22:45)
[2021-07-19 05:28] LABS: Basophils % 0.1 % (0.0-0.8); Eosinophils # 0.1 10*3/uL (0.0-0.87); Eosinophils % 1.4 % (0.00-10.9); Hematocrit 29.3 VOL% (35.7-47.0); Hemoglobin 8.8 GM/DL (12.0-16.0); Immature Granulocytes % 0.9 %; Immature Granulocytes Absolute 0.08 #; Lymphocytes # 1.3 10*3/uL (1.4-4.0); Lymphocytes % 14.9 % (21.3-54.2); Mean Corpuscular Volume 85.2 FL (87-102); Mean Platelet Volume 9.4 FL (9.6-12.0); Monocytes % 6.3 % (1.7-12.7); Neutrophils % 76.4 % (38.7-73.9); Platelet Count 320 T/CUMM (130-400); Red Blood Count 3.44 MC/CUMM (3.8-5.5); Red Cell Distribution Width 14.5 % (9.3-17.3); White Blood Count 8.7 T/CUMM (4-12)
[2021-07-19 05:49] LABS: Osmolality,Calculated 275.4 MOS/KG (273-304); Potassium 3.8 MMOL/L (3.5-5.1)
[2021-07-19] MEDS: INSULIN REGULAR 100 UNIT/ML SUBCUT SCH ×4 (07:30→22:16)
[2021-07-19] MEDS ORDERED: LACTATED RINGERS 1,000 ML IV SCH (07:30)
[2021-07-19] MEDS ORDERED: SUCCINYLCHOLINE 200 MG/10 ML VIAL ONE (08:07)
[2021-07-19] MEDS ORDERED: ROCURONIUM 50 MG/5 ML VIAL IV ONE (08:07)
[2021-07-19] MEDS ORDERED: propofoL 200 MG/20 ML VIAL IV ONE (08:07)
[2021-07-19] MEDS ORDERED: SEVOFLURANE 1 UNIT/15 MINUTE INH ONE ×2 (08:07→08:52)
[2021-07-19] MEDS ORDERED: LIDOCAINE 2% 5 ML VIAL ONE (08:07)
[2021-07-19] MEDS ORDERED: fentaNYL 100 MCG/2 ML VIAL ONE (08:07)
[2021-07-19] MEDS ORDERED: ONDANSETRON 4 MG/2 ML VIAL ONE ×2 (08:07→08:31)
[2021-07-19] MEDS ORDERED: MIDAZOLAM 2 MG/2 ML VIAL ONE (08:08)
[2021-07-19] MEDS ORDERED: diphenhydrAMINE 50 MG/1 ML VIAL ONE (08:31)
[2021-07-19] MEDS ORDERED: DEXAMETHASONE 4 MG/1 ML VIAL ONE (08:31)
[2021-07-19] MEDS ORDERED: diphenhydrAMINE 50 MG/1 ML VIAL IV PRN (09:18)
[2021-07-19] MEDS ORDERED: HYDROmorphone 2 MG/1 ML VIAL IV PRN (09:18)
[2021-07-19] MEDS ORDERED: PROMETHAZINE INJ 25 MG in SODIUM CHLORIDE 0.9% 50 ML IV PRN (09:18)
[2021-07-19] MEDS ORDERED: MEPERIDINE 25 MG/1 ML VIAL IV PRN (09:18)
[2021-07-19] MEDS ORDERED: ONDANSETRON 4 MG/2 ML VIAL IV PRN (09:18)
[2021-07-19] MEDS: FERROUS SULFATE 325 MG TABLET PO SCH ×2 (11:17→22:16)
[2021-07-19] MEDS: DULoxetine 20 MG CAPSULE PO SCH ×2 (11:17→22:16)
[2021-07-19] MEDS: ROSUVASTATIN 10 MG TABLET PO SCH (11:17)
[2021-07-19] MEDS: DOCUSATE SODIUM 100 MG CAPSULE PO SCH ×2 (11:17→22:16)
[2021-07-19] MEDS: INSULIN GLARGINE 100 UNIT/ML SUBCUT SCH (11:17)
[2021-07-19] MEDS: ENOXAPARIN 40 MG/0.4 ML SYRINGE SUBCUT SCH (11:18)
[2021-07-19] MEDS: PANTOPRAZOLE 40 MG TABLET PO SCH (11:18)
[2021-07-19] MEDS: cefTRIAXone 2,000 MG in SODIUM CHLORIDE 0.9% 100 ML IV SCH (12:40)
[2021-07-19] MEDS: GABAPENTIN 300 MG CAPSULE PO SCH (22:16)
[2021-07-20 06:48] LABS: Basophils % 0.3 % (0.0-0.8); Eosinophils # 0.1 10*3/uL (0.0-0.87); Eosinophils % 1.3 % (0.00-10.9); Hematocrit 29.5 VOL% (35.7-47.0); Hemoglobin 8.7 GM/DL (12.0-16.0); Immature Granulocytes % 0.7 %; Immature Granulocytes Absolute 0.05 #; Lymphocytes # 1.4 10*3/uL (1.4-4.0); Lymphocytes % 18.8 % (21.3-54.2); Mean Corpuscular HGB Conc 29.5 GM/DL (32-36); Mean Platelet Volume 10.7 FL (9.6-12.0); Monocytes % 7.9 % (1.7-12.7); Platelet Count 261 T/CUMM (130-400); Red Blood Count 3.43 MC/CUMM (3.8-5.5); Red Cell Distribution Width 14.5 % (9.3-17.3); White Blood Count 7.6 T/CUMM (4-12)
[2021-07-20 07:20] LABS: Calcium 8.5 MG/DL (8.5-10.1); Osmolality,Calculated 273.7 MOS/KG (273-304); Potassium 3.9 MMOL/L (3.5-5.1)
[2021-07-20] MEDS: INSULIN GLARGINE 100 UNIT/ML SUBCUT SCH (08:43)
[2021-07-20] MEDS: DULoxetine 20 MG CAPSULE PO SCH ×2 (08:43→20:51)
[2021-07-20] MEDS: ROSUVASTATIN 10 MG TABLET PO SCH (08:43)
[2021-07-20] MEDS: FERROUS SULFATE 325 MG TABLET PO SCH ×2 (08:43→20:51)
[2021-07-20] MEDS: DOCUSATE SODIUM 100 MG CAPSULE PO SCH ×2 (08:43→20:51)
[2021-07-20] MEDS: PANTOPRAZOLE 40 MG TABLET PO SCH (08:43)
[2021-07-20] MEDS: INSULIN REGULAR 100 UNIT/ML SUBCUT SCH ×4 (08:43→23:22)
[2021-07-20] MEDS: ENOXAPARIN 40 MG/0.4 ML SYRINGE SUBCUT SCH (08:43)
[2021-07-20] MEDS: cefTRIAXone 2,000 MG in SODIUM CHLORIDE 0.9% 100 ML IV SCH (08:43)
[2021-07-20] MEDS: ONDANSETRON 4 MG/2 ML VIAL IV PRN (20:48)
[2021-07-20] MEDS: GABAPENTIN 300 MG CAPSULE PO SCH (20:51)
[2021-07-21 05:44] LABS: Basophils % 0.3 % (0.0-0.8); Eosinophils # 0.1 10*3/uL (0.0-0.87); Eosinophils % 1.5 % (0.00-10.9); Hematocrit 29.9 VOL% (35.7-47.0); Hemoglobin 8.8 GM/DL (12.0-16.0); Immature Granulocytes % 0.7 %; Immature Granulocytes Absolute 0.05 #; Lymphocytes # 1.4 10*3/uL (1.4-4.0); Lymphocytes % 18.9 % (21.3-54.2); Mean Corpuscular HGB Conc 29.4 GM/DL (32-36); Mean Corpuscular Volume 86.9 FL (87-102); Mean Platelet Volume 9.5 FL (9.6-12.0); Monocytes % 9.1 % (1.7-12.7); Neutrophils % 69.5 % (38.7-73.9); Platelet Count 311 T/CUMM (130-400); Red Blood Count 3.44 MC/CUMM (3.8-5.5); Red Cell Distribution Width 14.6 % (9.3-17.3); White Blood Count 7.2 T/CUMM (4-12)
[2021-07-21 06:00] LABS: Calcium 8.4 MG/DL (8.5-10.1); Potassium 3.8 MMOL/L (3.5-5.1)
[2021-07-21] MEDS: INSULIN REGULAR 100 UNIT/ML SUBCUT SCH ×4 (07:30→21:13)
[2021-07-21] MEDS ORDERED: LACTATED RINGERS 1,000 ML IV SCH (09:00)
[2021-07-21] MEDS ORDERED: fentaNYL 100 MCG/2 ML VIAL ONE (09:39)
[2021-07-21] MEDS ORDERED: ROCURONIUM 50 MG/5 ML VIAL IV ONE (09:39)
[2021-07-21] MEDS ORDERED: LIDOCAINE 2% 5 ML VIAL ONE (09:39)
[2021-07-21] MEDS ORDERED: ONDANSETRON 4 MG/2 ML VIAL ONE (09:39)
[2021-07-21] MEDS ORDERED: SUCCINYLCHOLINE 200 MG/10 ML VIAL ONE (09:39)
[2021-07-21] MEDS ORDERED: propofoL 200 MG/20 ML VIAL IV ONE (09:39)
[2021-07-21] MEDS ORDERED: MEPERIDINE 25 MG/1 ML VIAL ONE (10:50)
[2021-07-21] MEDS ORDERED: MEPERIDINE 25 MG/1 ML VIAL IV PRN (10:55)
[2021-07-21] MEDS: ROSUVASTATIN 10 MG TABLET PO SCH (11:30)
[2021-07-21] MEDS: PANTOPRAZOLE 40 MG TABLET PO SCH (11:30)
[2021-07-21] MEDS: DULoxetine 20 MG CAPSULE PO SCH ×2 (11:30→21:13)
[2021-07-21] MEDS: FERROUS SULFATE 325 MG TABLET PO SCH ×2 (11:30→21:13)
[2021-07-21] MEDS: DOCUSATE SODIUM 100 MG CAPSULE PO SCH ×2 (11:30→21:14)
[2021-07-21] MEDS: cefTRIAXone 2,000 MG in SODIUM CHLORIDE 0.9% 100 ML IV SCH (11:30)
[2021-07-21] MEDS: INSULIN GLARGINE 100 UNIT/ML SUBCUT SCH (11:30)
[2021-07-21] MEDS: ENOXAPARIN 40 MG/0.4 ML SYRINGE SUBCUT SCH (14:39)
[2021-07-21] MEDS: GABAPENTIN 300 MG CAPSULE PO SCH (21:13)
[2021-07-21] MEDS: ACETAMINOPHEN 325 MG TABLET PO PRN (21:14)
[2021-07-22 06:15] LABS: Basophils % 0.3 % (0.0-0.8); Eosinophils # 0.1 10*3/uL (0.0-0.87); Eosinophils % 1.3 % (0.00-10.9); Hematocrit 29.2 VOL% (35.7-47.0); Hemoglobin 8.6 GM/DL (12.0-16.0); Immature Granulocytes % 0.5 %; Immature Granulocytes Absolute 0.04 #; Lymphocytes # 1.4 10*3/uL (1.4-4.0); Lymphocytes % 18.1 % (21.3-54.2); Mean Corpuscular HGB Conc 29.5 GM/DL (32-36); Mean Corpuscular Volume 87.2 FL (87-102); Mean Platelet Volume 9.1 FL (9.6-12.0); Monocytes % 11.4 % (1.7-12.7); Neutrophils % 68.4 % (38.7-73.9); Platelet Count 265 T/CUMM (130-400); Red Blood Count 3.35 MC/CUMM (3.8-5.5); Red Cell Distribution Width 14.6 % (9.3-17.3); White Blood Count 7.4 T/CUMM (4-12)
[2021-07-22 06:31] LABS: Calcium 8.2 MG/DL (8.5-10.1); Osmolality,Calculated 278.7 MOS/KG (273-304); Potassium 3.6 MMOL/L (3.5-5.1)
[2021-07-22 06:44] LABS: Hypochromia 1+
[2021-07-22 06:45] LABS: Microcytosis Slight; Platelet Estimate Normal
[2021-07-22] MEDS: ENOXAPARIN 40 MG/0.4 ML SYRINGE SUBCUT SCH (08:45)
[2021-07-22] MEDS: DOCUSATE SODIUM 100 MG CAPSULE PO SCH ×2 (08:45→21:43)
[2021-07-22] MEDS: FERROUS SULFATE 325 MG TABLET PO SCH ×2 (08:45→21:43)
[2021-07-22] MEDS: ROSUVASTATIN 10 MG TABLET PO SCH (08:45)
[2021-07-22] MEDS: DULoxetine 20 MG CAPSULE PO SCH ×2 (08:45→21:43)
[2021-07-22] MEDS: INSULIN REGULAR 100 UNIT/ML SUBCUT SCH ×4 (08:45→21:43)
[2021-07-22] MEDS: PANTOPRAZOLE 40 MG TABLET PO SCH (08:45)
[2021-07-22] MEDS ORDERED: INSULIN GLARGINE 100 UNIT/ML SUBCUT SCH (09:00)
[2021-07-22] MEDS: cefTRIAXone 2,000 MG in SODIUM CHLORIDE 0.9% 100 ML IV SCH (09:00)
[2021-07-22] MEDS: FLUCONAZOLE 200 MG TABLET PO SCH (11:52)
[2021-07-22 15:31] LABS: Bacteria Wet Mount Moderate /HPF; Epithelial Cell Wet Mount Moderate /HPF (Few/HPF); RBC Wet Mount Occasional /HPF; WBC Wet Mount Moderate /HPF
[2021-07-22 15:32] LABS: Clue Cells None Seen /HPF (None Seen); Trichomonas Wet Mount Few /HPF (None Seen); Yeast Wet Mount None Seen /HPF (None Seen)
[2021-07-22] MEDS: metroNIDAZOLE 500 MG TABLET PO SCH ×2 (17:03→21:43)
[2021-07-22] MEDS: SERTRALINE 25 MG TABLET PO SCH (21:43)
[2021-07-22] MEDS: GABAPENTIN 300 MG CAPSULE PO SCH (21:43)
[2021-07-23 05:46] LABS: Basophils % 0.3 % (0.0-0.8); Eosinophils # 0.1 10*3/uL (0.0-0.87); Eosinophils % 1.7 % (0.00-10.9); Hematocrit 29.3 VOL% (35.7-47.0); Hemoglobin 8.7 GM/DL (12.0-16.0); Immature Granulocytes % 0.4 %; Immature Granulocytes Absolute 0.03 #; Lymphocytes # 1.4 10*3/uL (1.4-4.0); Lymphocytes % 20.4 % (21.3-54.2); Mean Corpuscular HGB Conc 29.7 GM/DL (32-36); Mean Corpuscular Volume 86.4 FL (87-102); Mean Platelet Volume 9.2 FL (9.6-12.0); Monocytes % 12.2 % (1.7-12.7); Platelet Count 239 T/CUMM (130-400); Red Blood Count 3.39 MC/CUMM (3.8-5.5); Red Cell Distribution Width 14.6 % (9.3-17.3)
[2021-07-23 05:58] LABS: Calcium 8.8 MG/DL (8.5-10.1); Osmolality,Calculated 278.7 MOS/KG (273-304); Potassium 3.9 MMOL/L (3.5-5.1)
[2021-07-23 07:26] LABS: Lymphocytes 18 % (20-55); Segmented Neutrophils 76 % (50-85); Total Cells Counted 100
[2021-07-23 07:27] LABS: Microcytosis 1+; Platelet Estimate Normal
[2021-07-23 07:28] LABS: Ovalocytes Slight; Polychromasia Few; Stomatocytes Slight
[2021-07-23] MEDS: INSULIN REGULAR 100 UNIT/ML SUBCUT SCH ×4 (10:00→21:29)
[2021-07-23] MEDS: ENOXAPARIN 40 MG/0.4 ML SYRINGE SUBCUT SCH (10:48)
[2021-07-23] MEDS: metroNIDAZOLE 500 MG TABLET PO SCH ×2 (10:48→20:53)
[2021-07-23] MEDS: PANTOPRAZOLE 40 MG TABLET PO SCH (10:48)
[2021-07-23] MEDS: DULoxetine 20 MG CAPSULE PO SCH ×2 (10:48→20:53)
[2021-07-23] MEDS: DOCUSATE SODIUM 100 MG CAPSULE PO SCH ×2 (10:48→20:54)
[2021-07-23] MEDS: ROSUVASTATIN 10 MG TABLET PO SCH (10:48)
[2021-07-23] MEDS: FERROUS SULFATE 325 MG TABLET PO SCH ×2 (10:48→20:54)
[2021-07-23] MEDS: cefTRIAXone 2,000 MG in SODIUM CHLORIDE 0.9% 100 ML IV SCH (10:49)
[2021-07-23] MEDS: INSULIN GLARGINE 100 UNIT/ML SUBCUT SCH (10:49)
[2021-07-23] MEDS: GABAPENTIN 300 MG CAPSULE PO SCH (20:53)
[2021-07-23] MEDS: SERTRALINE 25 MG TABLET PO SCH (20:54)
[2021-07-24 05:29] LABS: Basophils % 0.4 % (0.0-0.8); Eosinophils # 0.1 10*3/uL (0.0-0.87); Eosinophils % 1.5 % (0.00-10.9); Hematocrit 30.1 VOL% (35.7-47.0); Hemoglobin 9.1 GM/DL (12.0-16.0); Immature Granulocytes % 0.6 %; Immature Granulocytes Absolute 0.04 #; Lymphocytes # 1.5 10*3/uL (1.4-4.0); Lymphocytes % 21.6 % (21.3-54.2); Mean Corpuscular HGB Conc 30.2 GM/DL (32-36); Mean Corpuscular Volume 86.5 FL (87-102); Mean Platelet Volume 9.3 FL (9.6-12.0); Monocytes % 12.3 % (1.7-12.7); Neutrophils % 63.6 % (38.7-73.9); Platelet Count 212 T/CUMM (130-400); Red Blood Count 3.48 MC/CUMM (3.8-5.5); Red Cell Distribution Width 15.1 % (9.3-17.3); White Blood Count 6.8 T/CUMM (4-12)
[2021-07-24 05:57] LABS: Calcium 9.1 MG/DL (8.5-10.1); Potassium 4.5 MMOL/L (3.5-5.1)
[2021-07-24] MEDS ORDERED: FLUCONAZOLE 200 MG TABLET PO SCH (09:00)
[2021-07-24] MEDS: metroNIDAZOLE 500 MG TABLET PO SCH ×2 (09:07→21:28)
[2021-07-24] MEDS: INSULIN REGULAR 100 UNIT/ML SUBCUT SCH ×4 (09:07→22:45)
[2021-07-24] MEDS: cefTRIAXone 2,000 MG in SODIUM CHLORIDE 0.9% 100 ML IV SCH (09:07)
[2021-07-24] MEDS: INSULIN GLARGINE 100 UNIT/ML SUBCUT SCH (09:07)
[2021-07-24] MEDS: ENOXAPARIN 40 MG/0.4 ML SYRINGE SUBCUT SCH (09:08)
[2021-07-24] MEDS: ROSUVASTATIN 10 MG TABLET PO SCH (09:08)
[2021-07-24] MEDS: PANTOPRAZOLE 40 MG TABLET PO SCH (09:08)
[2021-07-24] MEDS: FLUCONAZOLE 200 MG TABLET PO SCH (09:08)
[2021-07-24] MEDS: FERROUS SULFATE 325 MG TABLET PO SCH ×2 (09:08→21:28)
[2021-07-24] MEDS: DULoxetine 20 MG CAPSULE PO SCH ×2 (09:09→21:28)
[2021-07-24] MEDS: DOCUSATE SODIUM 100 MG CAPSULE PO SCH ×2 (10:33→21:29)
[2021-07-24] MEDS ORDERED: ONDANSETRON 4 MG/2 ML VIAL IV PRN (11:13)
[2021-07-24] MEDS: SERTRALINE 25 MG TABLET PO SCH (21:28)
[2021-07-24] MEDS: GABAPENTIN 300 MG CAPSULE PO SCH (21:28)
[2021-07-24] MEDS: MELATONIN 3 MG TABLET PO PRN (21:29)
[2021-07-25] MEDS: ONDANSETRON 4 MG/2 ML VIAL IV PRN (00:30)
[2021-07-25] MEDS: INSULIN REGULAR 100 UNIT/ML SUBCUT SCH ×4 (07:30→22:16)
[2021-07-25] MEDS ORDERED: LACTATED RINGERS 1,000 ML IV SCH (09:30)
[2021-07-25] MEDS ORDERED: fentaNYL 100 MCG/2 ML VIAL ONE (09:54)
[2021-07-25] MEDS ORDERED: MIDAZOLAM 2 MG/2 ML VIAL ONE (10:04)
[2021-07-25] MEDS ORDERED: SUCCINYLCHOLINE 200 MG/10 ML VIAL ONE (10:28)
[2021-07-25] MEDS ORDERED: SEVOFLURANE 1 UNIT/15 MINUTE INH ONE (10:28)
[2021-07-25] MEDS ORDERED: LIDOCAINE 2% 5 ML VIAL ONE (10:28)
[2021-07-25] MEDS ORDERED: ROCURONIUM 50 MG/5 ML VIAL IV ONE (10:28)
[2021-07-25] MEDS ORDERED: propofoL 200 MG/20 ML VIAL IV ONE (10:28)
[2021-07-25] MEDS ORDERED: ETOMIDATE 40 MG/20 ML VIAL IV ONE (10:28)
[2021-07-25] MEDS ORDERED: MEPERIDINE 50 MG/1 ML VIAL IV PRN (11:12)
[2021-07-25] MEDS ORDERED: ONDANSETRON 4 MG/2 ML VIAL IV PRN (11:12)
[2021-07-25] MEDS: metroNIDAZOLE 500 MG TABLET PO SCH ×2 (12:15→21:33)
[2021-07-25] MEDS: ROSUVASTATIN 10 MG TABLET PO SCH (12:15)
[2021-07-25] MEDS: DULoxetine 20 MG CAPSULE PO SCH ×2 (12:15→21:33)
[2021-07-25] MEDS: PANTOPRAZOLE 40 MG TABLET PO SCH (12:15)
[2021-07-25] MEDS: cefTRIAXone 2,000 MG in SODIUM CHLORIDE 0.9% 100 ML IV SCH (12:15)
[2021-07-25] MEDS: FERROUS SULFATE 325 MG TABLET PO SCH ×2 (12:15→21:33)
[2021-07-25] MEDS: ENOXAPARIN 40 MG/0.4 ML SYRINGE SUBCUT SCH (12:15)
[2021-07-25] MEDS: DOCUSATE SODIUM 100 MG CAPSULE PO SCH ×2 (12:20→21:33)
[2021-07-25] MEDS: INSULIN GLARGINE 100 UNIT/ML SUBCUT SCH (13:25)
[2021-07-25] MEDS: GABAPENTIN 300 MG CAPSULE PO SCH (21:33)
[2021-07-25] MEDS: SERTRALINE 25 MG TABLET PO SCH (21:33)
[2021-07-25] MEDS: MELATONIN 3 MG TABLET PO PRN (22:20)
[2021-07-26 05:32] LABS: Basophils % 0.6 % (0.0-0.8); Eosinophils # 0.2 10*3/uL (0.0-0.87); Hematocrit 29.2 VOL% (35.7-47.0); Hemoglobin 8.7 GM/DL (12.0-16.0); Immature Granulocytes % 0.6 %; Immature Granulocytes Absolute 0.04 #; Lymphocytes # 1.6 10*3/uL (1.4-4.0); Lymphocytes % 23.4 % (21.3-54.2); Mean Corpuscular HGB Conc 29.8 GM/DL (32-36); Mean Corpuscular Volume 87.7 FL (87-102); Mean Platelet Volume 9.7 FL (9.6-12.0); Monocytes % 15.5 % (1.7-12.7); Neutrophils % 56.9 % (38.7-73.9); Platelet Count 167 T/CUMM (130-400); Red Blood Count 3.33 MC/CUMM (3.8-5.5); Red Cell Distribution Width 15.3 % (9.3-17.3); White Blood Count 6.8 T/CUMM (4-12)
[2021-07-26 05:48] LABS: Calcium 8.2 MG/DL (8.5-10.1); Osmolality,Calculated 281.7 MOS/KG (273-304); Potassium 4.2 MMOL/L (3.5-5.1)
[2021-07-26 06:12] LABS: Eosinophils 1 % (0-10); Hypochromia 1+; Lymphocytes 17 % (20-55); Microcytosis 1+; Platelet Estimate Adequate; Segmented Neutrophils 68 % (50-85); Total Cells Counted 100
[2021-07-26] MEDS: metroNIDAZOLE 500 MG TABLET PO SCH ×2 (08:57→21:54)
[2021-07-26] MEDS: DULoxetine 20 MG CAPSULE PO SCH ×2 (08:57→21:55)
[2021-07-26] MEDS: DAPAGLIFLOZIN 10 MG TABLET PO SCH (08:57)
[2021-07-26] MEDS: ROSUVASTATIN 10 MG TABLET PO SCH (08:57)
[2021-07-26] MEDS: FERROUS SULFATE 325 MG TABLET PO SCH ×2 (08:57→21:54)
[2021-07-26] MEDS: DOCUSATE SODIUM 100 MG CAPSULE PO SCH ×2 (08:58→21:54)
[2021-07-26] MEDS: ENOXAPARIN 40 MG/0.4 ML SYRINGE SUBCUT SCH (08:58)
[2021-07-26] MEDS: INSULIN GLARGINE 100 UNIT/ML SUBCUT SCH (08:58)
[2021-07-26] MEDS: PANTOPRAZOLE 40 MG TABLET PO SCH (08:58)
[2021-07-26] MEDS: INSULIN REGULAR 100 UNIT/ML SUBCUT SCH ×4 (08:59→21:56)
[2021-07-26] MEDS: MELATONIN 3 MG TABLET PO PRN (21:54)
[2021-07-26] MEDS: SERTRALINE 25 MG TABLET PO SCH (21:55)
[2021-07-26] MEDS: GABAPENTIN 300 MG CAPSULE PO SCH (21:55)
[2021-07-27 05:30] LABS: Basophils % 0.5 % (0.0-0.8); Eosinophils # 0.2 10*3/uL (0.0-0.87); Eosinophils % 3.6 % (0.00-10.9); Hematocrit 30.2 VOL% (35.7-47.0); Immature Granulocytes % 0.5 %; Immature Granulocytes Absolute 0.03 #; Lymphocytes # 1.4 10*3/uL (1.4-4.0); Mean Corpuscular HGB Conc 29.8 GM/DL (32-36); Mean Corpuscular Volume 86.8 FL (87-102); Mean Platelet Volume 9.8 FL (9.6-12.0); Neutrophils % 57.4 % (38.7-73.9); Platelet Count 169 T/CUMM (130-400); Red Blood Count 3.48 MC/CUMM (3.8-5.5); Red Cell Distribution Width 15.6 % (9.3-17.3); White Blood Count 5.8 T/CUMM (4-12)
[2021-07-27 05:56] LABS: Band Neutrophils 2 % (0-10); Eosinophils 3 % (0-10); Hypochromia 1+; Lymphocytes 23 % (20-55); Microcytosis 1+; Segmented Neutrophils 58 % (50-85); Total Cells Counted 100
[2021-07-27 05:57] LABS: Platelet Estimate Adequate
[2021-07-27 06:16] LABS: Potassium 3.8 MMOL/L (3.5-5.1)
[2021-07-27] MEDS: FERROUS SULFATE 325 MG TABLET PO SCH ×2 (09:15→21:59)
[2021-07-27] MEDS: INSULIN GLARGINE 100 UNIT/ML SUBCUT SCH (09:15)
[2021-07-27] MEDS: DOCUSATE SODIUM 100 MG CAPSULE PO SCH ×2 (09:15→21:59)
[2021-07-27] MEDS: PANTOPRAZOLE 40 MG TABLET PO SCH (09:15)
[2021-07-27] MEDS: ENOXAPARIN 40 MG/0.4 ML SYRINGE SUBCUT SCH (09:15)
[2021-07-27] MEDS: glipiZIDE 10 MG TABLET PO SCH (09:15)
[2021-07-27] MEDS: INSULIN REGULAR 100 UNIT/ML SUBCUT SCH ×4 (09:15→21:59)
[2021-07-27] MEDS: DULoxetine 20 MG CAPSULE PO SCH ×2 (09:15→21:58)
[2021-07-27] MEDS: DAPAGLIFLOZIN 10 MG TABLET PO SCH (09:15)
[2021-07-27] MEDS: ROSUVASTATIN 10 MG TABLET PO SCH (09:15)
[2021-07-27] MEDS: metroNIDAZOLE 500 MG TABLET PO SCH ×2 (09:15→21:58)
[2021-07-27] MEDS: GABAPENTIN 300 MG CAPSULE PO SCH (21:58)
[2021-07-27] MEDS: SERTRALINE 25 MG TABLET PO SCH (21:59)
[2021-07-27] MEDS: MELATONIN 3 MG TABLET PO PRN (21:59)
[2021-07-27] MEDS: ONDANSETRON 4 MG/2 ML VIAL IV PRN (23:19)
[2021-07-28 06:18] LABS: Basophils % 0.4 % (0.0-0.8); Eosinophils # 0.2 10*3/uL (0.0-0.87); Eosinophils % 5.1 % (0.00-10.9); Hematocrit 29.6 VOL% (35.7-47.0); Hemoglobin 8.9 GM/DL (12.0-16.0); Immature Granulocytes % 0.8 %; Immature Granulocytes Absolute 0.04 #; Lymphocytes # 1.2 10*3/uL (1.4-4.0); Lymphocytes % 26.3 % (21.3-54.2); Mean Corpuscular HGB Conc 30.1 GM/DL (32-36); Mean Corpuscular Volume 87.1 FL (87-102); Mean Platelet Volume 10.3 FL (9.6-12.0); Monocytes % 17.2 % (1.7-12.7); Neutrophils % 50.2 % (38.7-73.9); Platelet Count 163 T/CUMM (130-400); Red Cell Distribution Width 15.8 % (9.3-17.3); White Blood Count 4.7 T/CUMM (4-12)
[2021-07-28 06:49] LABS: Calcium 8.4 MG/DL (8.5-10.1); Osmolality,Calculated 280.7 MOS/KG (273-304)
[2021-07-28 07:06] LABS: Eosinophils 1 % (0-10); Hypochromia 1+; Lymphocytes 24 % (20-55); Polychromasia 3+; Segmented Neutrophils 62 % (50-85); Total Cells Counted 100
[2021-07-28] MEDS ORDERED: LIDOCAINE 2% 5 ML VIAL ONE (09:46)
[2021-07-28] MEDS ORDERED: propofoL 200 MG/20 ML VIAL IV ONE (09:46)
[2021-07-28] MEDS ORDERED: SEVOFLURANE 1 UNIT/15 MINUTE INH ONE ×2 (09:46→10:19)
[2021-07-28] MEDS ORDERED: MIDAZOLAM 2 MG/2 ML VIAL ONE (09:46)
[2021-07-28] MEDS ORDERED: SUCCINYLCHOLINE 200 MG/10 ML VIAL ONE (09:46)
[2021-07-28] MEDS ORDERED: fentaNYL 100 MCG/2 ML VIAL ONE (09:46)
[2021-07-28] MEDS ORDERED: LACTATED RINGERS 1,000 ML IV SCH (10:00)
[2021-07-28] MEDS ORDERED: ONDANSETRON 4 MG/2 ML VIAL ONE (10:19)
[2021-07-28] MEDS: INSULIN GLARGINE 100 UNIT/ML SUBCUT SCH (11:30)
[2021-07-28] MEDS: INSULIN REGULAR 100 UNIT/ML SUBCUT SCH ×4 (11:30→21:39)
[2021-07-28] MEDS: PANTOPRAZOLE 40 MG TABLET PO SCH (12:32)
[2021-07-28] MEDS: DULoxetine 20 MG CAPSULE PO SCH ×2 (12:33→21:36)
[2021-07-28] MEDS: DAPAGLIFLOZIN 10 MG TABLET PO SCH (12:33)
[2021-07-28] MEDS: metroNIDAZOLE 500 MG TABLET PO SCH ×2 (12:33→21:37)
[2021-07-28] MEDS: ROSUVASTATIN 10 MG TABLET PO SCH (12:33)
[2021-07-28] MEDS: glipiZIDE 10 MG TABLET PO SCH (12:33)
[2021-07-28] MEDS: DOCUSATE SODIUM 100 MG CAPSULE PO SCH ×2 (15:37→21:39)
[2021-07-28] MEDS: FERROUS SULFATE 325 MG TABLET PO SCH ×2 (15:37→21:37)
[2021-07-28] MEDS: ENOXAPARIN 40 MG/0.4 ML SYRINGE SUBCUT SCH (15:37)
[2021-07-28] MEDS ORDERED: DEXTROSE 50% 25 GM/50 ML VIAL IV PRN (17:14)
[2021-07-28] MEDS: MELATONIN 3 MG TABLET PO PRN (21:36)
[2021-07-28] MEDS: GABAPENTIN 300 MG CAPSULE PO SCH (21:38)
[2021-07-28] MEDS: SERTRALINE 25 MG TABLET PO SCH (21:38)
[2021-07-29 09:00] LABS: Basophils % 0.3 % (0.0-0.8); Eosinophils # 0.3 10*3/uL (0.0-0.87); Eosinophils % 5.7 % (0.00-10.9); Hemoglobin 9.3 GM/DL (12.0-16.0); Immature Granulocytes % 0.7 %; Immature Granulocytes Absolute 0.04 #; Lymphocytes # 1.4 10*3/uL (1.4-4.0); Lymphocytes % 23.6 % (21.3-54.2); Mean Corpuscular Volume 86.6 FL (87-102); Mean Platelet Volume 10.1 FL (9.6-12.0); Monocytes % 15.6 % (1.7-12.7); Neutrophils % 54.1 % (38.7-73.9); Platelet Count 174 T/CUMM (130-400); Red Blood Count 3.58 MC/CUMM (3.8-5.5); Red Cell Distribution Width 15.7 % (9.3-17.3); White Blood Count 5.8 T/CUMM (4-12)
[2021-07-29] MEDS: INSULIN GLARGINE 100 UNIT/ML SUBCUT SCH (09:30)
[2021-07-29] MEDS: DAPAGLIFLOZIN 10 MG TABLET PO SCH (09:30)
[2021-07-29] MEDS: DOCUSATE SODIUM 100 MG CAPSULE PO SCH ×2 (09:30→22:15)
[2021-07-29] MEDS: INSULIN REGULAR 100 UNIT/ML SUBCUT SCH ×4 (09:30→22:15)
[2021-07-29] MEDS: PANTOPRAZOLE 40 MG TABLET PO SCH (09:31)
[2021-07-29] MEDS: DULoxetine 20 MG CAPSULE PO SCH ×2 (09:31→22:15)
[2021-07-29] MEDS: FERROUS SULFATE 325 MG TABLET PO SCH ×2 (09:31→22:15)
[2021-07-29] MEDS: glipiZIDE 10 MG TABLET PO SCH (09:31)
[2021-07-29] MEDS: ROSUVASTATIN 10 MG TABLET PO SCH (09:32)
[2021-07-29 09:33] LABS: Eosinophils 5 % (0-10); Hypochromia 1+; Lymphocytes 17 % (20-55); Microcytosis 1+; Platelet Estimate Adequate; Segmented Neutrophils 64 % (50-85); Total Cells Counted 100
[2021-07-29] MEDS: ENOXAPARIN 40 MG/0.4 ML SYRINGE SUBCUT SCH (09:35)
[2021-07-29] MEDS: GABAPENTIN 300 MG CAPSULE PO SCH (22:15)
[2021-07-29] MEDS: SERTRALINE 25 MG TABLET PO SCH (22:15)
[2021-07-29] MEDS: MELATONIN 3 MG TABLET PO PRN (22:15)
[2021-07-30] MEDS ORDERED: DEXTROSE 50% 25 GM/50 ML VIAL IV PRN (08:57)
[2021-07-30] MEDS: FERROUS SULFATE 325 MG TABLET PO SCH ×2 (09:22→22:00)
[2021-07-30] MEDS: ROSUVASTATIN 10 MG TABLET PO SCH (09:23)
[2021-07-30] MEDS: DOCUSATE SODIUM 100 MG CAPSULE PO SCH ×2 (09:23→22:00)
[2021-07-30] MEDS: glipiZIDE 10 MG TABLET PO SCH (09:23)
[2021-07-30] MEDS: PANTOPRAZOLE 40 MG TABLET PO SCH (09:23)
[2021-07-30] MEDS: ENOXAPARIN 40 MG/0.4 ML SYRINGE SUBCUT SCH (09:23)
[2021-07-30] MEDS: INSULIN GLARGINE 100 UNIT/ML SUBCUT SCH (09:24)
[2021-07-30] MEDS: INSULIN REGULAR 100 UNIT/ML SUBCUT SCH ×4 (09:24→22:01)
[2021-07-30] MEDS: DULoxetine 20 MG CAPSULE PO SCH ×2 (09:26→22:00)
[2021-07-30] MEDS: DAPAGLIFLOZIN 10 MG TABLET PO SCH (09:26)
[2021-07-30] MEDS: SERTRALINE 25 MG TABLET PO SCH (22:00)
[2021-07-30] MEDS: GABAPENTIN 300 MG CAPSULE PO SCH (22:00)
[2021-07-30] MEDS: MELATONIN 3 MG TABLET PO PRN (22:03)
[2021-07-31 05:20] LABS: Basophils % 0.4 % (0.0-0.8); Eosinophils # 0.5 10*3/uL (0.0-0.87); Eosinophils % 7.4 % (0.00-10.9); Hematocrit 30.4 VOL% (35.7-47.0); Hemoglobin 9.1 GM/DL (12.0-16.0); Immature Granulocytes % 1.1 %; Immature Granulocytes Absolute 0.08 #; Lymphocytes # 1.7 10*3/uL (1.4-4.0); Lymphocytes % 23.6 % (21.3-54.2); Mean Corpuscular HGB Conc 29.9 GM/DL (32-36); Mean Corpuscular Volume 87.1 FL (87-102); Mean Platelet Volume 10.1 FL (9.6-12.0); Neutrophils % 54.5 % (38.7-73.9); Platelet Count 217 T/CUMM (130-400); Red Blood Count 3.49 MC/CUMM (3.8-5.5); White Blood Count 7.1 T/CUMM (4-12)
[2021-07-31 07:32] LABS: Osmolality,Calculated 277.8 MOS/KG (273-304); Potassium 3.9 MMOL/L (3.5-5.1)
[2021-07-31] MEDS ORDERED: HYDROmorphone 2 MG/1 ML VIAL IV ONE (08:20)
[2021-07-31] MEDS ORDERED: INSULIN GLARGINE 100 UNIT/ML SUBCUT SCH (09:00)
[2021-07-31] MEDS ORDERED: SODIUM HYPOCHLORITE 0.25% IRRIG 473 ML BOTTLE TOP SCH (09:00)
[2021-07-31] MEDS: ROSUVASTATIN 10 MG TABLET PO SCH (09:22)
[2021-07-31] MEDS: DOCUSATE SODIUM 100 MG CAPSULE PO SCH (09:22)
[2021-07-31] MEDS: DULoxetine 20 MG CAPSULE PO SCH (09:23)
[2021-07-31] MEDS: FERROUS SULFATE 325 MG TABLET PO SCH (09:23)
[2021-07-31] MEDS: DAPAGLIFLOZIN 10 MG TABLET PO SCH (09:23)
[2021-07-31] MEDS: glipiZIDE 10 MG TABLET PO SCH (09:23)
[2021-07-31] MEDS: PANTOPRAZOLE 40 MG TABLET PO SCH (09:23)
[2021-07-31] MEDS: INSULIN REGULAR 100 UNIT/ML SUBCUT SCH ×2 (09:24→13:28)
[2021-07-31] MEDS: ENOXAPARIN 40 MG/0.4 ML SYRINGE SUBCUT SCH (09:24)
[2021-07-31] MEDS: ONDANSETRON 4 MG/2 ML VIAL IV PRN (10:18)
[2021-07-31 12:24] VITALS: BP 117/18
== END 2021-07-31 15:07 | disposition home or self-care (01) | DRG 853 ==
LOC: EDUNIT# → EDBD → N.EDINP 22:14 → N.ED 22:14 → N.5E 07-08 08:01 → SUATTDRO 07-08 09:19
PROVIDERS: ADMIT Internal Medicine; ATTEND Hospitalist